=== PATIENT | male | born 1990 | race Hispanic/Latino ===

== ENCOUNTER 2018-02-12 22:52 | Emergency (ER) | payer BC ==
[2018-02-13] MEDS ORDERED: Morphine 4 MG/ML VIAL ONE (00:15)
[2018-02-13] MEDS ORDERED: Ketorolac Tromethamine 30 MG/ML VIAL ONE (00:16)
[2018-02-13] MEDS ORDERED: Ondansetron ODT 4 MG TAB ONE (00:16)
== END 2018-02-13 01:12 | disposition home or self-care (01) ==
LOC: ERS 22:52
DX: M27.3 Alveolitis of jaws (principal); F17.210 Nicotine dependence, cigarettes, uncomplicated
CPT/HCPCS: 96372; J1885; J2270; Q0162

== ENCOUNTER 2020-06-23 02:04 | Emergency (ER) | payer BC, OTHER ==
[2020-06-23 12:15] LABS: SARS-CoV-2 MS2 Positive; SARS-CoV-2 N Gene Negative; SARS-CoV-2 S Gene Negative; SARS-CoV-2 by NAA Not Detected (NotDetected); SARS-CoV-2 orf1ab Negative
== END 2020-06-23 02:47 | disposition home or self-care (01) ==
LOC: ERS 02:04
DX: R19.7 Diarrhea, unspecified (principal); R50.9 Fever, unspecified; Z20.828 Contact with and (suspected) exposure to other viral communicable diseases
CPT/HCPCS: 87635; 96372; 99283; J0500; U0003